=== PATIENT | female | born 1970 | race Caucasian/White ===

== ENCOUNTER 2020-01-08 11:30 | Outpatient (CLI) | payer OTHER, SELFPAY ==
--- NOTE | ~2020-01-08 | MM_ITS ---
EXAMINATION: MM screening tian BI w jai HISTORY: Screening mammogram TECHNIQUE: Craniocaudal and mediolateral oblique 3-D tomosynthesis images were obtained and synthetic 2-D images were generated. CAD analysis was submitted and interpreted. COMPARISON: None, baseline BREAST PARENCHYMAL COMPOSITION: There are scattered areas of fibroglandular density. FINDINGS: There is no evidence of suspicious mass, calcification, or architectural distortion to sugg est malignancy in either breast. IMPRESSION: 1. No mammographic evidence of malignancy. 2. Recommend routine screening mammography in one year. BI-RADS Category 1: Negative Reviewed, dictated and finalized at location A.
== END 2020-01-08 11:31 | disposition home or self-care (01) ==
LOC: ANHIMG 11:34
PROVIDERS: PCP Internal Medicine; Visit Provider Internal Medicine
DX: Z12.31 Encounter for screening mammogram for malignant neoplasm of breast (principal)
CPT/HCPCS: 77063; 77067

== ENCOUNTER 2020-06-06 10:12 | Outpatient (CLI) | payer OTHER, SELFPAY ==
--- NOTE | ~2020-06-06 | MR_ITS ---
EXAMINATION: MR knee RT wo con DATE: 06/06/2020 11:04 INDICATION: Medial and posterior right knee pain with swelling. TECHNIQUE: Magnetic resonance imaging (MRI) of the right knee was performed without intravenous contr ast. Sequences included coronal PD-weighted FSE, coronal PD-weighted FS FSE, sagittal T2-weighted FS E, sagittal PD-weighted FS FSE and axial PD weighted fat saturated FSE. COMPARISON: None. FINDINGS: Medial compartment: Mild partial thickness cartilage loss with relatively smooth chondral surface along the medial tibial plateau and anterior weightbearing medial femoral condyle. Small region of chondral ulceration and d eep fissuring without degenerative subchondral changes at the posterior weightbearing medial femoral condyle. Lateral compartment: Shallow chondral fissuring with mild surface regularity at the central aspect of the lateral tibial p lateau. Partial thickness cartilage loss with smooth chondral surface along the lateral margin of the posterior weightbearing lateral femoral condyle. Patellofemoral compartment: Partial-thickness cartilage loss with chondral surface regularity along the caudal two thirds of the lateral patellar facet and juxtaposed superolateral aspect of the lateral trochlea. Small region of d eep chondral fissuring without degenerative subchondral changes along the medial side of the medial p atellar facet. Small to moderate sized marginal osteophytes are present. Ligaments and tendons: Anterior and posterior cruciate ligaments are normal. The medial collateral ligament and fibular parag ateral ligament complex are normal. The extensor mechanism is normal. The visualized medial and later al hamstring tendons as well as the iliotibial band are normal. Fluid: Small to moderate sized right knee joint effusion. There is scattered synovitis most prominent at the suprapatellar pouch. No loose osteochondral bodies identified. Osseous/other: Normal marrow signal. No fracture or pathologic marrow replacing process. IMPRESSION: 1. Mild tricompartmental osteoarthritis with regions of moderate grade chondromalacia in all 3 compar tments. 2. Small to moderate-sized right knee joint effusion with synovitis most prominent at the suprapatell ar pouch. Reviewed, dictated and finalized at location A. IMPRESSION: 1. Mild tricompartmental osteoarthritis with regions of moderate grade chondrom alacia in all 3 compartments. 2. Small to moderate-sized right knee joint effusion with synovitis most promin ent at the suprapatellar pouch.
== END 2020-06-06 10:13 | disposition home or self-care (01) ==
LOC: ANHIMG 10:15
PROVIDERS: PCP Internal Medicine; Visit Provider Orthopaedic Surgery
DX: M25.461 Effusion, right knee (principal); M17.11 Unilateral primary osteoarthritis, right knee
CPT/HCPCS: 73721

== ENCOUNTER 2021-01-11 16:57 | Outpatient (CLI) | payer OTHER, MEDICAID, SELFPAY ==
--- NOTE | ~2021-01-11 | MM_ITS ---
EXAMINATION: MM screening tian BI w jai HISTORY: Screening mammogram TECHNIQUE: Craniocaudal and mediolateral oblique 3-D tomosynthesis images were obtained and synthetic 2-D images were generated. CAD analysis was submitted and interpreted. COMPARISON: 01/08/2020 bilateral digital screening mammogram examination BREAST PARENCHYMAL COMPOSITION: There are scattered areas of fibroglandular density. FINDINGS: Benign-appearing stable intramammary lymph node in the upper outer quadrant of the left zeus ast. There is no evidence of suspicious mass, calcification, or architectural distortion to suggest m alignancy in either breast. There has been no suspicious interval change. IMPRESSION: 1. No mammographic evidence of malignancy. 2. Recommend routine screening mammography in one year. BI-RADS Category 2: Benign finding(s). Reviewed, dictated and finalized at location A. [facility] [employer]
== END 2021-01-11 16:58 | disposition home or self-care (01) ==
PROVIDERS: PCP Internal Medicine; Visit Provider Obstetrics & Gynecology
DX: Z12.31 Encounter for screening mammogram for malignant neoplasm of breast (principal)
CPT/HCPCS: 77063; 77067

== ENCOUNTER 2025-03-21 14:37 | Outpatient (CLI) | payer OTHER, MEDICAID, SELFPAY ==
--- NOTE | 2025-03-21 | ECHO_ITS ---
Patient Info Name: Laurie Neely Age: 54 years : 1970 Gender: Female Ht: 61 in Wt: 229 lbs BSA: 2.18 m2 HR: 80 bpm BP: 153 / 87 mmHg Technical Quality: Fair Exam Date: 03/21/2025 3:06 PM Patient Status: O Admit Date: 03/21/2025 Exam Type: CA echo doppler color flow Complete two-dimensional, color flow and Doppler transthoracic echocardiogram is performed. Office Assistant Receptionist: Valeria Fierro Attending Provider: Bairon Valerio Summary 1. Complete two-dimensional, color flow and Doppler transthoracic echocardiogram is performed. 2. There is normal biventricular size and systolic function. 3. There are no significant valvular abnormalities. Left Ventricle The left ventricle is normal in size and systolic function. The left ventricular ejection fraction is visually estimated to be 60-65%. Right Ventricle The right ventricle is normal in size and systolic function. Left Atria The left atrium is normal in size. Right Atria The right atrium is normal size. Atrial Septum The atrial septum is not well visualized. Aortic Valve The aortic valve is not well visualized. There is no Doppler gradient suggestive of hemodynamically significant aortic stenosis. Pulmonic Valve The pulmonic valve is not well visualized. There is no color Doppler evidence of pulmonic valve regurgitation. Mitral Valve The mitral valve is normal. There is trace mitral regurgitation. Tricuspid Valve The tricuspid valve is normal. There is trace tricuspid regurgitation. Pericardium/Pleural Pericardium is normal in appearance with no evidence for significant pericardial effusion. Inferior Vena Cava Normal inferior vena cava with >50% collapse upon inspiration consistent with normal right atrial pressure, 3 mmHg. Aorta The aortic root at the level of the sinus of Valsalva measures 2.2 cm in diameter. Left Ventricular Outflow Tract Name Value Normal LVOT 2D LVOT Diameter 2.0 cm LVOT Doppler LVOT Peak Velocity 125 cm/s LVOT Peak Gradient 6 mmHg LVOT Mean Gradient 4 mmHg LVOT VTI 26 cm LVOT VTI/AV VTI Ratio 0.7 LVOT Stroke Volume 83 ml LVOT CO 6.2 l/min LVOT CI 2.9 l/min/m2 Pulmonic Valve Name Value Normal RVOT Doppler RVOT Peak Velocity 88 cm/s RVOT Peak Gradient 3 mmHg PV Doppler PV Peak Velocity 118 cm/s PV Peak Gradient 6 mmHg Mitral Valve Name Value Normal MV Diastolic Function MV E Peak Velocity 80 cm/s MV A Peak Velocity 75 cm/s MV E/A 1.1 MV Decel Time (PW) 171 ms Tricuspid Valve Name Value Normal TV Regurgitation Doppler TR Peak Velocity 289 cm/s TR Peak Gradient 26 mmHg Estimated PAP/RSVP RA Pressure 3 mmHg <=5 PA Systolic Pressure 36 mmHg <36 RV Systolic Pressure 36 mmHg <36 Aorta Name Value Normal Ascending Aorta Ao Root Diameter (MM) 2.6 cm Ao Root Diam Index (MM) 1.2 cm/m2 Aortic Valve Name Value Normal AV Doppler AV Peak Velocity 190 cm/s AV Peak Gradient 14 mmHg AV Mean Gradient 8 mmHg AV VTI 37 cm AV Area (Cont Eq VTI) 2.2 cm2 >=3.0 AV Area (Cont Eq Shahriar) 2.1 cm2 AV DI (Shahriar) 0.66 AV Regurgitation 2D LVOT Area 3.2 cm2 Ventricles Name Value Normal LV Dimensions 2D/MM IVS Diastolic Thickness (2D) 1.0 cm 0.6-1.0 IVS Diastole Thickness (MM) 1.1 cm 0.6-0.9 LVID Diastole (2D) 3.5 cm 3.8-5.2 LVID Diastole (MM) 4.2 cm 3.8-5.2 LVIW Diastolic Thickness (2D) 1.0 cm 0.6-0.9 LVIW Diastolic Thickness (MM) 0.9 cm 0.6-0.9 LVID Systole (2D) 2.6 cm 2.2-3.5 LVID Systole (MM) 1.9 cm 2.2-3.5 LVOT Diameter 2.0 cm LV Mass (2D Cubed) 105.01 g 67.00-162.00 LV Mass Index (2D Cubed) 48 g/m2 43-95 Relative Wall Thickness (2D) 0.58 <=0.42 LV Mass (MM Cubed) 137.54 g 67.00-162.00 LV Mass Index (MM Cubed) 63 g/m2 43-95 Relative Wall Thickness (MM) 0.46 LV Fractional Shortening/Ejection Fraction 2D/MM LV Fractional Shortening (2D) 28 % 27-45 LV Fractional Shortening (MM) 54 % 27-45 LV EF (MM Teichholz) 86 % LV EF (2D Teichholz) 55 % LV Diastolic Volume (4C MOD) 62 ml LV EF (4C MOD) 60 % LV Diastolic Volume (2C MOD) 68 ml LV EF (2C MOD) 64 % LV Diastolic Volume (BP MOD) 66 ml 46-106 LV Diastolic Volume Index (BP MOD) 30 ml/m2 29-61 LV Systolic Volume (BP MOD) 25 ml 14-42 LV Systolic Volume Index (BP MOD) 12 ml/m2 8-24 LV EF (BP MOD) 62 % 54-74 LV Diastolic Length (4C) 8.2 cm LV Systolic Length (4C) 7.1 cm LV Stroke Volume (4C MOD) 37 ml Atria Name Value Normal LA Dimensions LA Dimension (MM) 4.2 cm 2.7-3.8 LA Volume (4C A-L) 56 ml LA Volume (BP A-L) 54 ml RA Dimensions RA Systolic Major [place] Length (4C) 5.2 cm 2.2-2.8 RA Area (4C) 14.8 cm2 <=18.0 Report Signatures
--- OUTSIDE RECORDS SUMMARY | 2025-03-21 14:41 | XMS_ITS | CONTINUITY OF CARE DOCUMENT ---
Author Name philip palacios Address Unknown Organization [facility] Address [address] [place] [address] Phone [phone] Care Team Providers Care Hod Carrier Name Role Phone philip palacios Unavailable Unavailable INSURANCE PROVIDERS Payer name Policy type / Coverage type [place] [employer] [facility] Medicaid 0 [id number] [facility] Auto Secure insurance [employer] [id number]
--- OUTSIDE RECORDS SUMMARY | 2025-03-21 14:42 | XMS_ITS | Data Portability ---
Author Organization [place] [employer], Main Office Address [address] [place] [address] Assessment Encounter Date Assessment Date Assessment LastModified by Organization Details LastModified Time 12/18/2023 12/18/2023 Impression: Patient has mild patellofemoral and medial compartment osteoarthritis the right knee. She cannot take nonsteroidal anti-inflammatory medications because of her history of gastric sleeve. She has also history of fatty liver disease. She is particularly sensitive to the pain with history of fibromyalgia. She has seen a hand laster in the past and she has not been thought to have rheumatoid arthritis or other inflammatory arthritis. I had a long discussion with her about losing weight. I think that if she lost weight her knee would bother her much less and if she does not lose weight she is going to have more rapid worsening of her arthritis time and suffer the medical complications of her extreme obesity fatty liver disease being 1 of these. We had a long discussion at last visit about modifying her diet but she has not done this. I went through this with her thoroughly today spending 20 minute specifically discussing strategies to lose weight. I recommended that she weigh herself every morning and keep a diary. She has read that doing so can cause eating disorders. At may be true to a person who has anorexia but she will not be able to monitor her weight loss progress less she is weighing herself frequently and consistently. I would recommend that she reduce her diet in order to lose 1-1/2 lb per week each and every week without fail and if this requires her to fast the last day of the week that would be beneficial overall. I have discussed with her the strategy of avoiding simple carbs such as sugary foods such as sweets cookies candies ice cream and pasta pizza dough bread rice potatoes and get her calories through vegetables and fish poultry lean meats. This may be enough to allow her to gradually lose weight. Going to the gym to exercise in order to lose weight is going to be unsuccessful. Exercise in general will be beneficial for cardiovascular system but in less she modifies her diet it is extremely unlikely she is going to be able to work out enough to have a consistent weight loss and LEs she modifies her diet and she seemed to acknowledge that fact. I did give her handout correlating calories and weight loss for her review. I have discussed with him that repeating cortisone injections might accelerate the progression of her arthritis over time. She is fairly miserable with her knee though and would like to have another cortisone shot today. . Risk of infection of cortisone shots discussed. After Betadine and alcohol prep 20 mg of Kenalog and 4 cc of 0.5% ropivacaine were injected into the right knee without difficulty. Prior to the injection, I did recommend aspirating the knee and we removed 3 cc of very clear light yellow fluid arguing against an inflammatory arthritis. I have explained that I will be leaving the practice. She lives and works very close by to the [place] and she may continue to see Dr. Meza or 1 of the PAs. 30 minutes were spent total care this patient more than half the time spent in uptd-pg-epmo care. [email or web address] Not available 12/19/2023 22:46:34 02/20/2024 02/20/2024 Reviewed previou s labs and visits, she is here for med refill and update labs. SHe has an insurance change and is unsure if she will be required to get another provider We discussed that she has times where she feels woozy and her blood sugar is too low. We discussed small high protien snacks to avoid hypoglycemic events. Will review labs and update plan of care based on lab results. [email or web address] Not available 02/20/2024 17:11:25 Plan of Treatment Reminders Order Date Submit Date Provider Last Modified By Organization Details Last Modified Time Details Appointments None recorded . Lab vitamin D, 25-hydro xy, total, serum 2024 025 [email or web address] [facility], [address] [place], [address], 10:08:45 CMP, serum or plasma [address], [address] [place], [address], 5 10:08:44 lipid panel, serum [address], [address] [place], [address], 5 10:08:45 lipid panel, serum 2023 024 [facility], [address] [place], [address], 4 21:34:33 TSH, serum or plasma 2023 024 [facility], [address] [place], [address], 4 21:41:54 T4, free, serum 2023 024 [facility], [address] [place], [address], 4 21:37:18 T3, free, serum or plasma 2023 024 [facility], [address] [place], [address], 4 21:37:20 CMP, serum or plasma 2023 024 [facility], [address] [place], [address], 4 21:34:28 CBC 2023 024 [facility], [address] [place], [address], 4 19:29:41 Referral None recorded . Procedures injectio n/aspira tion joint/bu rsa (PROC) - in office procedur e, administ ered by provider 2023 024 [email or web address] In-Office Order, Internal Use Only DO Not Attach Compendium DO Not Attach Compendium, Do Not Delete/merge, [id number] 4 11:21:26 Surgeries None recorded . Imaging US, echocard iogram - Please call patient to schedule . 2024 025 [email or web address] [facility], [address], [place], [address], 5 17:41:42 MAMMO, screenin g, bilatera l [address] (Radiology), [address], [place], [address], 4 09:03:27 Medication Orders triamcin olone acetonid e 0.1 % topical cream 2024 025 [facility]/Pharmacy #[id number], [address], [place], [address], 5 16:01:15 duloxeti ne 30 mg capsule, delayed release 2024 025 [facility]/Pharmacy #[id number], [address], [place], [address], 5 16:31:15 tramadol 50 mg tablet 2023 024 [facility]/Pharmacy #[id number], [address], [place], [address], 4 16:42:04 spironol actone 100 mg tablet 2023 024 [facility]/Pharmacy #[id number], [address], [place], [address], 4 16:42:02 amlodipi ne 5 mg tablet 2023 024 [facility]/Pharmacy #[id number], [address], [place], [address], 4 16:42:03 duloxeti ne 30 mg capsule, delayed release 2023 024 [facility]/Pharmacy #[id number], [address], [place], [address], 4 16:42:02 gabapent in 300 mg capsule 2023 024 [facility]/Pharmacy #[id number], [address], [place], [address], 4 16:42:02 Kenalog 10 mg/mL suspensi on for injectio n 2023 024 [email or web address] [facility]/Pharmacy #[id number], [address], [place], [address], 5 16:20:39 ropivaca ine (PF) 5 mg/mL (0.5 %) injectio n solution 2023 024 [email or web address] [facility]/Pharmacy #[id number], [address], [place], [address], 4 10:43:04 Patient TargetsNo targets recorded. Patient Instructions Encounter Date Encounter Id Patient Instructions Last Modified By Organization Details Last Modified Time 03/14/2025 [id number] Keep area clean and dry. Use ointment as directed. Follow up in one week if no improvement. Not available 03/14/2025 16:53:38 Reason for Referral None Reported. Results Created Date Observation Date Name Description Value Unit Range Abnormal Flag Note LastModifiedBy Organization Detail LastModifiedTime 03/02/20 24 03/02/2024 CBC W/O DIFFE RENANUP AL white blood cells 6.4 x10'3 /uL 4.2-10 .8 Not Available [facility] (Lab) [address] [facility], [place], [address], 03/02/2024 19:29:40 03/02/20 24 03/02/2024 CBC W/O DIFFE RENTI AL red blood cells 4.11 x10'6 /uL 3.80-5 .20 Not Available [facility] (Lab) [address] [place], [address], 03/02/2024 19:29:40 03/02/20 24 03/02/2024 CBC W/O DIFFE RENTI AL hemoglobin 12.4 g/dL 12.0-1 5.6 Not Available [facility] (Lab) [address] [place], [address], 03/02/2024 19:29:40 03/02/20 24 03/02/2024 CBC W/O DIFFE RENTI AL hematocrit 37.9 % 35.7-4 5.7 Not Available [facility] (Lab) [address] [place], [address], 03/02/2024 19:29:40 03/02/20 24 03/02/2024 CBC W/O DIFFE RENTI AL mean red cell volume 92.2 fL 82.0-9 9.0 Not Available [facility] (Lab) [address] [place], [address], 03/02/2024 19:29:40 03/02/20 24 03/02/2024 CBC W/O DIFFE RENTI AL mean red cell hemoglobin 30.2 pg 27.0-3 3.0 Not Available [facility] (Lab) [address] [place], [address], 03/02/2024 19:29:40 03/02/20 24 03/02/2024 CBC W/O DIFFE RENTI AL mean RBC HGB concentratio n 32.7 g/dL 31.0-3 6.0 Not Available [facility] (Lab) [address] [place], [address], 03/02/2024 19:29:40 03/02/20 24 03/02/2024 CBC W/O DIFFE RENTI AL red cell distribution width 14.3 % 11.8-1 5.5 Not Available [facility] (Lab) [address] [place], [address], 03/02/2024 19:29:40 03/02/20 24 03/02/2024 CBC W/O DIFFE RENTI AL platelets 249 x10'3 /uL 150-40 0 Not Available [facility] (Lab) [address] [place], [address], 03/02/2024 19:29:40 03/02/20 24 03/02/2024 CBC W/O DIFFE RENTI AL mean platelet volume 10.6 fL 9.0-12 .4 Not Available [facility] (Lab) [address] [place], [address], 03/02/2024 19:29:40 03/02/20 24 03/02/2024 COMPR EHENS JULIA METAB OLIC PANEL sodium 138 mmol/ L 137-14 5 Not Available [facility] (Lab) [address] [place], [address], 03/02/2024 21:34:28 03/02/20 24 03/02/2024 COMPR EHENS JULIA METAB OLIC PANEL potassium 4.2 mmol/ L 3.5-5. 1 Not Available [facility] (Lab) [address] [place], [address], 03/02/2024 21:34:28 03/02/20 24 03/02/2024 COMPR EHENS JULIA METAB OLIC PANEL chloride 105 mmol/ L 98-107 Not Available [facility] (Lab) [address] [place], [address], 03/02/2024 21:34:28 03/02/20 24 03/02/2024 COMPR EHENS JULIA METAB OLIC PANEL carbon dioxide 25 mmol/ L 22-30 Not Available [facility] (Lab) [address] [place], [address], 03/02/2024 21:34:28 03/02/20 24 03/02/2024 COMPR EHENS JULIA METAB OLIC PANEL anion gap 12.2 mmol/ L 14-22 low Not Available [facility] (Lab) [address] [place], [address], 03/02/2024 21:34:28 03/02/20 24 03/02/2024 COMPR EHENS JULIA METAB OLIC PANEL glucose 105 mg/dL 70-99 high Not Available [facility] (Lab) [address] [place], [address], 03/02/2024 21:34:28 03/02/20 24 03/02/2024 COMPR EHENS JULIA METAB OLIC PANEL BUN 15 mg/dL 8-19 Not Available [facility] (Lab) [address] [place], [address], 03/02/2024 21:34:28 03/02/20 24 03/02/2024 COMPR EHENS JULIA METAB OLIC PANEL creatinine 0.97 mg/dL 0.66-1 .25 Not Available [facility] (Lab) [address] [place], [address], 03/02/2024 21:34:28 03/02/20 24 03/02/2024 COMPR EHENS JULIA METAB OLIC PANEL GFR >60 Refer ence Range : [place] ge GFR Healt hy Adult : >60 mL/mi n/1.7 3 m2 Chron ic Kidne y Disea se: 15-60 mL/mi n/1.7 3 m2 Kidne y Failu re: <15/m L/min /1.73 m2 www.n iddk. nih.g ov The MDRD study equat ion has not been valid ated in child kelsea <18 years of age; pregn ant women ; the elder ly >85 years of age; or in some racia l or ethni c subgr oups, such as Hispa nics. Outsi de the valid ated josefina eters , estim ated GFR is less accur ate, requi ring clini yumiko judgm ent on a case- by-ca se basis . Clini yumiko inter preta tion for other races and ages must be made by the clini arcelia. The MDRD study equat ion has not been valid ated for the evalu ation of serum creat inine relat ed to nutri blaze l statu s or medic ation usage . For perso ns <18 years of age, a pedia tric GFR calcu lator is avail able on the [facility] websi te: https ://ww w.kid edson.o rg/pr ofess ional s/kdo qi/gf r_cal culat or Not Available [facility] (Lab) [address] [place], [address], 03/02/2024 21:34:28 03/02/20 24 03/02/2024 COMPR EHENS JULIA METAB OLIC PANEL alkaline phosphatase 115 U/L 38-126 Not Available [facility] (Lab) [address] [place], [address], 03/02/2024 21:34:28 03/02/20 24 03/02/2024 COMPR EHENS JULIA METAB OLIC PANEL alanine aminotransfe rase 40 U/L 0-35 high Not Available [facility] (Lab) [address] [place], [address], 03/02/2024 21:34:28 03/02/20 24 03/02/2024 COMPR EHENS JULIA METAB OLIC PANEL aspartate aminotransfe rase 42 U/L 15-37 high Not Available [facility] (Lab) [address] [place], [address], 03/02/2024 21:34:28 03/02/20 24 03/02/2024 COMPR EHENS JULIA METAB OLIC PANEL bilirubin, total 0.40 mg/dL 0.20-1 .30 Not Available [facility] (Lab) [address] [place], [address], 03/02/2024 21:34:28 03/02/20 24 03/02/2024 COMPR EHENS JULIA METAB OLIC PANEL calcium 9.9 mg/dL 8.4-10 .2 Not Available [facility] (Lab) [address] [place], [address], 03/02/2024 21:34:28 03/02/20 24 03/02/2024 COMPR EHENS JULIA METAB OLIC PANEL total protein 7.1 g/dL 6.3-8. 2 Not Available [facility] (Lab) [address] [place], [address], 03/02/2024 21:34:28 03/02/20 24 03/02/2024 COMPR EHENS JULIA METAB OLIC PANEL albumin 4.3 g/dL 3.4-5. 0 Not Available [facility] (Lab) [address] [place], [address], 03/02/2024 21:34:28 03/02/20 24 03/02/2024 COMPR EHENS JULIA METAB OLIC PANEL globulin 2.8 g/dL 2.6-4. 2 Not Available [facility] (Lab) [address] [place], [address], 03/02/2024 21:34:28 03/02/20 24 03/02/2024 COMPR EHENS JULIA METAB OLIC PANEL A/G ratio 1.5 ratio 1.0-2. 0 Not Available [facility] (Lab) [address] [place], [address], 03/02/2024 21:34:28 03/02/20 24 03/02/2024 LIPID PANEL cholesterol 210 mg/dL 140-19 9 high [facility] JOHN NSUS RECOM MENDA TION FOR CADENCE STERO L: ADULT CHILD LOW RISK: <200 <170 BORDE RLINE : <200- 239 ----- HIGH RISK: >240 >200 Not Available [facility] (Lab) [address] [place], [address], 03/02/2024 21:34:33 03/02/20 24 03/02/2024 LIPID PANEL triglyceride s 200 mg/dL 0-150 high NIH JOHN NSUS REPOR T RECOM MENDA TION FOR TRIGL YCERI CARMENZA: ADULT CHILD LOW RISK: <150 ----- BODER LINE: 150-1 99 ----- HIGH RISK: >200 ----- Not Available [facility] (Lab) [address] [place], [address], 03/02/2024 21:34:33 03/02/20 24 03/02/2024 LIPID PANEL HDL cholesterol 46 mg/dL 40- Not Available [facility] (Lab) [address] [place], [address], 03/02/2024 21:34:33 03/02/20 24 03/02/2024 LIPID PANEL LDL cholesterol, calculated 124 mg/dL 0-130 NIH JOHN NSUS REPOR T RECOM MENDA TIONS FOR LDL: ADULT CHILD LOW RISK <130 <110 (OPTI MAL LDL) <100 ----- BORDE RLINE : 130-1 59 ----- HIGH RISK: >160 >130 A TRIGL YCERI DE RESUL T >400 INVAL IDATE S THE CALCU LATIO N FOR LDL FRACT IONAT ION - THE LDL RESUL T WILL NOT BE REPOR CORNELL. Not Available [facility] (Lab) [address] [place], [address], 03/02/2024 21:34:33 03/02/20 24 03/02/2024 T4 FREE free T4 0.87 NG/dL 0.78-2 .19 Not Available [facility] (Lab) [address] [place], [address], 03/02/2024 21:37:18 03/02/20 24 03/02/2024 T3 FREE free T3 3.4 pg/mL 2.77-5 .27 Not Available [facility] (Lab) [address] [place], [address], 03/02/2024 21:37:19 03/02/20 24 03/02/2024 TSH thyroid-stim ulating hormone 0.043 uIU/m L 0.465- 4.680 low Not Available [facility] (Lab) [address] [place], [address], 03/02/2024 21:41:54 Result Notes None recorded. Problems Name Problem SNOMED Code Status Onset Date Resolution Date Notes Provider Name and Address Organization Details Recorded Time Benign hypertens ion 57899793 Active Not Available [facility] 3 14:49:03 Celluliti s 358959683 Completed Not Available [facility] 3 14:49:03 External hordeolum 5260149 Completed Not Available [facility] 3 14:49:03 Chondroma lacia of right patella 99572184680 298647 Completed 201905/22/2022 Nevaeh Pelayo RMKeturah bassett, [employer] 3 09:50:33 Acute sinusitis 33720743 Completed 202111/08/2022 Echo eller RMKeturah bassett, [employer] 3 13:44:16 History of depressio n 684669106 Completed in the past Not Available [facility] 3 14:49:04 Backache 014110133 Active Not Available [facility] 3 14:49:04 Serum thyroid stimulati ng hormone level outside reference range 305624714 Active 2021 Not Available [facility] 3 14:49:04 Insomnia 185598824 Active 2020 Not Available [facility] 3 14:49:04 Steatotic liver disease 364923618 Active Not Available [facility] 3 14:49:04 Morbid obesity 410639489 Completed Not Available [facility] 3 14:49:04 Edema 270741950 Active Not Available [facility] 3 14:49:04 Anemia 102825126 Completed Not Available [facility] 3 14:49:05 Malaise and fatigue 869476379 Completed Not Available [facility] 3 14:49:05 Eruption 783293398 Completed Not Available [facility] 3 14:49:05 Loss of hair 582939733 Active 2021 Not Available [facility] 3 14:49:05 Low back pain 106163889 Active Not Available [facility] 3 14:49:05 Vaginitis 25622858 Completed Not Available [facility] 3 14:49:05 Knee pain Completed 201905/22/2022 Not Available [facility] 3 14:49:05 Depressiv e disorder 57736516 Active 2021 Not Available [facility] 3 14:49:06 Osteoarth ritis 969038882 Active 2020 Not Available [facility] 3 14:49:06 Vertigo 714341383 Completed Not Available [facility] 3 14:49:06 Melanocyt ic nevus 029116882 Active 2021 Not Available [facility] 3 14:49:06 Obesity 049006356 Active Not Available [facility] 3 14:49:06 Pain in eye 97341906 Completed Not Available [facility] 3 14:49:06 Furuncle 125745275 Completed Not Available [facility] 3 14:49:07 Pain of right knee joint 57660136892 4100 Active 2021 Not Available [facility] 3 14:49:07 Essential hypertens ion 42242683 Active 2020 Not Available [facility] 3 14:49:07 Rhinitis 95161873 Active 2021 Not Available [facility] 3 14:49:07 Fatigue 36363807 Completed 202105/22/2022 Not Available [facility] 3 14:49:08 Fatigue 80199117 Completed Not Available [facility] 3 14:49:08 Pain in limb 85459267 Completed Not Available [facility] 3 14:49:08 Pain of temporoma ndibular joint 86584402 Completed Not Available [facility] 3 14:49:08 Primary fibromyal cristal syndrome 46812394 Active Not Available [facility] 3 14:49:08 Conjuncti vitis 6695629 Completed Not Available [facility] 3 14:49:09 Overactiv e urinary bladder 268298219 Active 2022 Bairon Valerio MD [address], [address], [place], [address] , [facility] 3 16:30:35 Chondroma lacia of right patella 97441468494 025426 Active 2022 JEFFREY Fenton null, [facility] 3 09:50:33 Osteoarth ritis of right knee joint 30001936414 9100 Active 2022 Carrie Quijano null, [facility] 3 10:06:02 Sleep pattern disturban ce 11842823 Active 2022 Bairon Valerio MD [address], [address], [place], [address] , [facility] 3 17:02:49 Acute urinary tract infection 236742595 Active 2022 Debbie Ngo MA null, [place] [facility] 3 16:20:06 Candidias is of skin 72171276 Active 2022 JEFFREY Alonzo null, [place] - [facility] 3 14:40:19 Acute sinusitis 87831592 Active 2022 JEFFREY Alonzo null, [place] [facility] 3 13:44:16 Urinary symptoms 733337083 Active 2022 Ashlee Sanford LPN null, [place] [facility] 3 12:46:20 Candidias is of vagina 42912895 Active 2022 Ashlee RAJ Sanford null, [place] [facility] 3 15:24:11 Neuropath y 478090979 Active 2023 JEFFREY Alonzo null, [facility] 4 10:39:31 Thyroid function tests abnormal 247697845 Active 2023 Nasrin Umaña NP [address], [address], [place], [address] , [facility] 4 16:31:44 Hyperlipi demia 79920571 Active 2023 Nasrin Umaña NP [address], [address], [place], [address] , [facility] 4 16:38:24 Sinusitis 55680672 Active 2023 Jane De La Garza MA null, [place] - [facility] 4 10:50:52 Cough 79545460 Active 2023 Jane De La Garza MA null, [place] - [facility] 4 10:50:57 Heart murmur 22007635 Active 2024 Bairon Valerio MD [address], [address], [place], [address] , [facility] 5 16:35:11 Pruritic rash 64487825 Active 2024 MARY Cordova [address], [address], [place], [address] , [facility] 5 16:00:23 Problem Notes None recorded. Procedures Surgical History Date Name Laterality Status Provider Name and Address Organization Details Recorded Time 3 Advanced Care Planning completed Jackelin Contreras RN [facility] 03/13/2023 16:16:01 section completed JEFFREY Fenton [facility] 03/25/2023 09:48:13 procedure on gallbladder completed JEFFREY Fenton [facility] 03/25/2023 09:48:26 Laminectomy completed JEFFREY Fenton [facility] 03/25/2023 09:48:36 Imaging Results None recorded. Procedure Notes None recorded. Medical Equipment None Reported. Allergies Allergen ID Allergen Name Allergen Category Reaction Reaction Severity Criticality Documentation Date Start Date Code Code System Note Provider Name and Address Organization Details Recorded Time 73207 Bactrim medicatio n Not available Not available Not available 10/09/2023 21331 9 RxNorm Echo chavez JEFFREY bassett [facility] 13:19:27 Medications Name Sig Start Date Stop Date Status Note LastModified by Organization Details LastModified Time cyclobenz aprine 10 mg tablet Take 1 tablet twice a day by oral route as needed. active Not Available Not Available No t Available amoxicill in 500 mg capsule TAKE 1 CAPSULE BY MOUTH FOUR TIMES A DAY UNTIL FINISHED active Not Available Not Available No t Available furosemid e 40 mg tablet TAKE ONE TABLET BY MOUTH EVERY DAY active Not Available Not Available No t Available prednison e 10 mg tablet TAKE 1 TABLET BY MOUTH TWICE DAILY FOR 10 DAYS 02/22 completed Not Available Not Available Not Available tizanidin e 2 mg tablet 08/12 completed Not Available Not Available Not Available azithromy emerald 250 mg tablet TAKE 2 TABLETS (500 MG) BY ORAL ROUTE ONCE DAILY FOR 1 DAY THEN 1 TABLET (250 MG) BY ORAL ROUTE ONCE DAILY FOR 4 DAYS 02/22 completed Not Available Not Available Not Available fluconazo le 150 mg tablet Take 1 tablet every week by oral route for 2 days. 02/22 completed Not Available Not Available Not Available benzonata te 200 mg capsule Take 1 capsule 3 times a day by oral route as needed for 10 days. 02/22 completed Not Available Not Available Not Available hydrocodo ne 5 mg-acetam inophen 325 mg tablet active as needed Not Available Not Available Not Available prednison e 20 mg tablet active Not Available Not Available Not Available spironola ctone 100 mg tablet TAKE 1 TABLET BY MOUTH EVERY DAY active Not Available Not Available No t Available terconazo le 0.8 % vaginal cream 01/22 completed Not Available Not Available Not Available meclizine 12.5 mg tablet Take 1 tablet 3 times a day by oral route as needed. 05/28 completed Not Available Not Available Not Available acetamino phen 300 mg-codein e 30 mg tablet 08/28 completed Not Available Not Available Not Available ciproflox acin 250 mg tablet TAKE 1 TABLET BY MOUTH EVERY 12 HOURS FOR 5 DAYS active Not Available Not Available No t Available amlodipin e 5 mg tablet TAKE 1 TABLET BY MOUTH EVERY DAY active Not Available Not Available No t Available ciproflox acin 500 mg tablet 10/28 completed Not Available Not Available Not Available Tamiflu 75 mg capsule Take 1 capsule twice a day by oral route for 5 days. active Not Available Not Available No t Available sulfameth oxazole 800 mg-trimet hoprim 160 mg tablet Take 1 tablet every 12 hours by oral route for 10 days. active Not Available Not Available No t Available tramadol 50 mg tablet TAKE 1 TABLET BY MOUTH THREE TIMES A DAY NEEDED active Not Available Not Available No t Available amitripty line 50 mg tablet Take 1 tablet every day by oral route at bedtime. 09/28 completed Not Available Not Available Not Available triamcino lone acetonide 0.1 % topical cream APPLY TOPICALL Y TO AFFECTED AREA TWICE A DAY FOR 30 DAYS active Not Available Not Available No t Available prednison e 10 mg tablets in a dose pack Take 1 tab by mouth, 3 times a day for 3 daysTake 1 tab by mouth 2 times a day for 2 daysTake 1 tab by mouth once a day for 1 day 08/28 completed Not Available Not Available Not Available oxycodone -acetamin ophen 5 mg-325 mg tablet 11/27 completed as needed Not Available Not Available Not Available estradiol 1 mg tablet TAKE 1 TABLET BY MOUTH EVERY DAY active Not Available Not Available No t Available ciproflox acin 0.3 % eye drops Instill 1 drop(s) EVERY 2 HOURS by ophthalm ic route for 2 days then 1 drop qid x 3 days active [id number]|2025-03-21 14:42:00|2025-03-21 14:42:00|XMS_ITS|BKG DAEMON|External Medical Summaries|[id number]|" Clinical Summary Created on: March 21, 2025 Laurie Neely : 1970 Sex: Female Author Organization [facility]_ [facility] Address [address] [address] Care Team Providers Care Casey Saw Operator Name Role Phone Bairon Valerio MD Primary Care Provider [phone] Lisseth Velazquez RN Unavailable Source Comments [facility],non-owned Affiliates and Associated Physician Practices is amultiple site organization consisting of ambulatory clinics and hospital sitesin [place], [place], [place] and [place]. This disclosure is being madepursuant to the Care Everywhere program and may not contain all information available regarding this patient. Last updated 18.[facility] Allergies Active Allergy Reactions Criticality Noted Date Comments Adhesive Sensitivity Rash Low 01/26/2014 Adhesive tape Medications * Be aware that medications may not be up to date on this document. Alwaysverify current medications with the patient. DULoxetine HCl (CYMBALTA PO) Active gabapentin (NEURONTIN) 300 MG capsule 4 times daily. Active furosemide (LASIX) 40 MG tablet Active traMADol (ULTRAM) 50 MG tablet Active cyclobenzaprine (FLEXERIL) 10 MG tablet 1 Tab 3 times daily. 90 Tab 3 02/10/2014 Active amLODIPine (Norvasc) 5 MG tablet Take 1 (one) tablet by mouth once daily 02/04/2024 Active predniSONE (Deltasone) 10 MG tablet Take 1 (one) tablet by mouth 2 times daily 04/15/2024 Active spironolactone (Aldactone) 100 MG tablet Take 1 (one) tablet by mouth once daily 02/15/2024 Active Active Problems Problem Noted Date Diagnosed Date Follow-up examination, following other surgery 0 02/14/2014 Degeneration of lumbar or lumbosacral interverte bral disc 01/03/2014 Displacement of lumbar inter vertebral disc without myelopathy 01/03/2014 Social History Tobacco Use Types Packs/Day Years Used Date Smoking Tobacco: Never Tobacco Cessation:Counseling Given: Not Answered Alcohol Use Standard Drinks/Week Comments No 0 (1 standard drink = 0.6 oz pur e alcohol) Comments No Sex and Gender Information Value Date Recorded Sex Assigned at Female 09/19/2022 8:51 AM ATTENDANT [employer]ILD [employer]IV[employer] Legal Sex Female 4:14 PM ATTEND[employer]IV[employer] Gender Identity Female 09/19/2022 8:51 AM ATTENDANT [employer]ILD ACTIVITY Sexual Orientation Straight 09/19/2022 8: 51 AM ATTENDANT CHILD ACTIVITY Last Filed Vital Signs Vital Sign Reading Time Taken Comments Blood Pressure 136/80 04/23/2024 11:35 AM CDT Pulse 80 01/27/2014 11:50 AM CDT Temperature 36.6 C (97.9 F) 01/27/2014 11:50 AM CDT Respiratory Rate 18 01/27/2014 11:50 AM CDT Oxygen Saturation 98% 01/27/2014 11:50 AM CDT Inhaled Oxygen Concentration - - Weight 105.2 kg (232 lb) 04/23/2024 11:35 AM CDT Height 157.5 cm (5' 2 ) 04/23/2024 11:35 AM CDT Body Mass Index 42.43 04/23/2024 11:35 AM CDT Plan of Treatment Health Maintenance Due Date Last Done Comments COLOGUARD (AGES 45-75) - COLON CA SCREENING 1970 COLON MONITORING 1972 COLONOSCOPY - COLON CA SCREENING 1972 CT COLONOGRAPHY - COLON CA SCREENING 1970 Colorectal Cancer Screening 1972 FIT - COLON CA SCREENING 1972 FLEX SIG - COLON CA SCREENING 1972 LIPID TESTING 1972 MAMMOGRAM 1972 PAP SMEAR 1972 HIV SCREENING 1987 HEPATITIS C SCREENING 08/19/1990 DTAP/TDAP/TD VACCINES (1 - Tdap) 1991 HEPATITIS B VACCINE (1 of 3 - 19+ 3-dose series) 1991 PNEUMOCOCCAL VACCINE 50+ (1 of 1 - PCV) 2022 ZOSTER VACCINE (1 of 2) 2022 SCREENING FOR DIABETES 04/23/2024 01/26/2014 COVID-19 VACCINE (1 - season) 2024 DEPRESSION SCREENING 11/03/2024 INFLUENZA VACCINE (Season Ended) 2025 09/13/2020, 10/04/2018, 10/08/2016, Additional history exists HIB VACCINE Aged Out No longer eligi ble based on patient's age to complete this topic HPV VACCINE Aged Out No longer eligi ble based on patient's age to complete this topic MENINGOCOCCAL (Group B) VACCINE SHARED DECISION-MAKING Aged Out No longer eligible based on patient's age to complete this topic MENINGOCOCCAL GROUPS A/C/Y/W VACCINE Aged Out No longer eligible based on patient's age to complete this topic Procedures Procedure Name Priority Date/Time Associated Diagnosis Comments BASIC METABOLIC PANEL (CALCIUM TOTAL) Pre-Op 01/26/2014 7:20 AM CDT Degeneration of lumbar or lumbosacral intervertebral disc Displacement Of Lumbar Intervertebral Disc Without Myelopathy from Last 3 Months or Most Recently Relevant to Health Maintenance Results * BASIC METABOLIC PANEL (CALCIUM TOTAL) (01/26/2014 7:20 AM CDT) [facility] Glucose 99 74 - 106 mg/dL 01/26/2014 8:15 AM CDT [facility] Sodium 139 136 - 145 mmol/L 01/26/2014 8:15 AM CDT [facility] Potassium 3.7 3.5 - 5.1 mmol/L 01/26/2014 8:15 AM CDT [facility] Chloride 103 98 - 107 mmol/L 01/26/2014 8:15 AM CDT [facility] CO2 27 22 - 31 mmol/L 01/26/2014 8:15 AM CDT [facility] Calcium 9.1 8.5 - 10.1 mg/dL 01/26/2014 8:15 AM CDT [facility] Anion Gap 9 5 - 15 mmol/L 01/26/2014 8:15 AM CDT [facility] BUN 11 7 - 21 mg/dL 01/26/2014 8:15 AM CDT [facility] Creatinine 0.59 0.50 - 1.30 mg/dL 01/26/2014 8:15 AM CDT [facility] eGFR by MDRD >60 >60 mL/min/1.7 3m2 01/26/2014 8:15 AM CDT [facility] eGFR by MDRD >60 >60 mL/min/1.7 3m2 01/26/2014 8:15 AM CDT [facility] Blood BLOOD SPECIMEN / Unknown 01/26/2014 7:20 AM CDT 01/26/2014 7:47 AM CDT us Heriberto Mccarty MD LAB - CHEMISTRY ORDERABLES F inal Result [facility] [address] [place] [address] from Last 3 Months or Most Recently Relevant to Health Maintenance [place] [address] [place] [address] Advance Directives * Full Code (Latest Code Status on File) Date Activated Date Inactivated Comments 01/26/2014 12:41 PM 01/27/2014 11:06 PM Care Teams Casey Saw Operator Relationship Specialty Start Date End Date Bairon Valerio MD [address] [facility] [address] [place] [id number] PCP - General Internal Medicine 01/03/14 Lisseth Velazquez, RN [employer]ofing Laborer 01/27/14 "
== END 2025-03-21 14:38 | disposition home or self-care (01) ==
PROVIDERS: PCP Internal Medicine; Visit Provider Internal Medicine
DX: R01.1 Cardiac murmur, unspecified (principal)
CPT/HCPCS: 93306